=== PATIENT | female | born 1995 | race African-American/Black ===

== ENCOUNTER 2017-11-01 11:22 | Emergency (ER) | payer OTHER ==
[2017-11-01 12:34] LABS: BILIRUBIN,URINE NEGATIVE (NEG); CLARITY,URINE CLEAR; COLOR,URINE AMBER; GLUCOSE,URINE NEGATIVE (NEG); NITRITE,URINE NEGATIVE (NEG); PROTEIN,URINE NEGATIVE (NEG-TRACE)
[2017-11-01] MEDS ORDERED: cefTRIAXone IM 250 MG VIAL IM ×2 (12:45)
[2017-11-01] MEDS ORDERED: AZITHROMYCIN 250 MG TABLET. PO ×2 (12:45)
[2017-11-01 13:02] LABS: BACTERIA,URINE 0 /HPF (0-FEW); RBC,URINE 0 /HPF (0-2); SQUAMOUS EPITHELIAL CELL,UR MANY /LPF
[2017-11-01] MEDS: AZITHROMYCIN 250 MG TABLET. PO ×2 (13:11)
[2017-11-01] MEDS: cefTRIAXone IM 250 MG VIAL IM ×2 (13:11)
[2017-11-01] MEDS ORDERED: metroNIDAZOLE 500 MG TABLET PO ×2 (13:30)
[2017-11-02 16:27] LABS: CHLAMYDIA PROBE Positive (Negative); GC PROBE Negative (Negative)
== END 2017-11-01 14:44 | disposition home or self-care (01) ==
LOC: ER 11:22
DX: O98.319 Other infections with a predominantly sexual mode of transmission complicating pregnancy, unspecified trimester (principal); A56.8 Sexually transmitted chlamydial infection of other sites; I10 Essential (primary) hypertension; F12.10 Cannabis abuse, uncomplicated; Z90.49 Acquired absence of other specified parts of digestive tract; Z3A.00 Weeks of gestation of pregnancy not specified
CPT/HCPCS: 81001; 87491; 87591; 96372; 99284-25; J0696; Q0111; Q0144